=== PATIENT | female | born 1995 | race Asian ===

== ENCOUNTER → 2019-04-04 | Outpatient (REF) | payer OTHER | LOC: M SFHCLERA 12:32 | PROVIDERS: ATTEND Physician Assistant | DX: L02.216 Cutaneous abscess of umbilicus (principal) | CPT/HCPCS: 87070; 87076; 87077; G0463 ==

== ENCOUNTER 2022-11-07 12:01 | Emergency (ER) | payer BC, OTHER ==
[~2022-11-07] VITALS: Ht 160 cm; Wt 77.0 kg
[2022-11-07 12:03] VITALS: TEMP 98.8
[2022-11-07 16:37] VITALS: BP 137/71; O2SAT 99
== END 2022-11-07 16:39 | disposition home or self-care (01) ==
LOC: M ED 12:01
DX: R11.2 Nausea with vomiting, unspecified (principal); F41.9 Anxiety disorder, unspecified

== ENCOUNTER → 2025-02-24 | Outpatient (CLI) | payer BC, OTHER | LOC: M SLEEP HO 10:24 | PROVIDERS: ATTEND Internal Medicine | DX: R06.83 Snoring (principal) ==